=== PATIENT | male | born 1990 | race Caucasian/White ===

== ENCOUNTER 2023-07-24 11:43 | Emergency (ER) | payer OTHER ==
--- NOTE | 2023-07-24 11:46 | ERPHSYRPT ---
- History of Present Illness Time Seen by Provider: 07/24/23 11:46 Source: patient Exam Limitations: no limitations Physician History: This is a 33-year-old white male patient who presents with abscess of his skin of the left upper lip laterally. Patient has no history of MRSA. He noticed in last few days that there was swelling present and he thought it was an infected hair follicle and squeezed it. There was pus present. However the swelling and tenderness increased today. Patient has not had a fever. He has no known drug allergies and he takes no medications chronically. Severity: mild ENT Location: mouth (Upper outer lateral lip) Modifying Factors: Improves With: nothing Associated Symptoms: other (Abscess swelling pain upper outer lateral lip) Allergies/Adverse Reactions: No Known Drug Allergies Allergy (Verified 01/30/14 20:21) Hx Tetanus, Diphtheria Vaccination/Date Given: No Hx Influenza Vaccination/Date Given: No Hx Pneumococcal Vaccination/Date Given: No Travel Risk - International Travel Have you traveled outside of the country in past 3 weeks: No - Coronavirus Screening Are you exhibiting any of the following symptoms?: No Close contact with a COVID-19 positive Pt in past 14-21 Days: No - Review of Systems Constitutional: No Symptoms Eyes: No Symptoms Ears, Nose, & Throat: No Symptoms Respiratory: No Symptoms Cardiac: No Symptoms Abdominal/Gastrointestinal: No Symptoms Genitourinary Symptoms: No Symptoms Musculoskeletal: No Symptoms Skin: Other (Abscess upper outer lateral lip) Neurological: No Symptoms Psychological: No Symptoms Endocrine: No Symptoms Hematologic/Lymphatic: No Symptoms Immunological/Allergic: No Symptoms All Other Systems: Reviewed and Negative - Past Medical History Pertinent Past Medical History: No Neurological History: Other Respiratory History: Asthma Other Medical History: FEBRILE SEIzURES - Past Surgical History Past Surgical History: Yes Musculoskeletal: Orthopedic Surgery Other Surgical History: LEFT HAND SURGERY - Social History Smoking Status: Heavy tobacco smoker How long have you smoked: 6 Exposure to second hand smoke: Yes Drug Use: none Patient Lives Alone: No - Nursing Vital Signs Nursing Vital Signs: Initial Vital Signs Temperature 98.0 F 07/24/23 11:47 Pulse Rate 71 07/24/23 11:47 Respiratory Rate 20 07/24/23 11:47 Blood Pressure 120/80 07/24/23 11:47 O2 Sat by Pulse Oximetry 99 07/24/23 11:47 Pain Scale Pain Intensity 9 - Physical Exam General Appearance: no apparent distress, alert, anxiety, thin Eye Exam: bilateral eye: normal inspection, PERRL, EOMI, abnormal EOM Ear Exam: bilateral ear: auricle normal Nasal Exam: normal inspection Throat Exam: normal Neck Exam: normal inspection, non-tender, supple, full range of motion Cardiovascular/Respiratory Exam: chest non-tender, no respiratory distress Abdominal Exam: non-tender Neurologic Exam: alert, oriented x 3, 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, 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, normal mood/affect, nml cerebellar function, nml station & gait, sensation nml Skin Exam: other (1 cm abscess upper outer left lateral lip) SpO2 Interpretation: normal O2 Delivery: Room Air Procedures - Incision and Drainage Time of Procedure: 12:05 Site: Upper outer lateral left lip cc's of anesthesia: 2 Blade Size: 11 I & D Procedure: betadine prep Results: small amount pus (To moderate expressible pus after incision and drainage) - Course Nursing assessment & vital signs reviewed: Yes - Progress Progress: improved Progress Note: 07/24/23 12:20 This patient medical issues 1 of low complexity. Level complex in the work-up performed is based on review of the patient's past medical history, review the patient's medication list, review the patient drug allergy list, history of present illness, and physical findings on examination. This patient's work-up does not require laboratory or radiographic studies. Counseled pt/family regarding: diagnosis, need for follow-up Medical Desision Making - Diagnostic Testing Diagnostic test were ordered, analyzed, and reviewed by me: No - Risk of complications The pt has a mod risk of morbidity or mortality based on: Need for prescription drug management - Departure Departure Disposition: Home Clinical Impression: Lip abscess Condition: Stable Critical Care Time: No Referrals: JESSICA STANLEY [Primary Care Provider] - Follow up/PCP as directed Additional Instructions: Keep the area clean daily with soap and water. Do not apply lotions ointments or creams. Wash the site at least daily and possibly twice daily. Dry the site after each cleansing and apply a Band-Aid to the site. Take your antibiotics as prescribed. Follow-up with your primary care provider in the next 48 hours for further evaluation and management. Return to emergency department if symptoms worsen. Prescriptions: Hydrocodone/APAP 5/325 [[place] 5/325 mg] 1 each PO Q8H PRN PRN #6 tablet MDD 3 PRN Reason: Pain Smz/Tmp Ds Tablet [Bactrim Ds Tablet] 1 udtab PO BID #14 tablet
[2023-07-24 12:35] VITALS: BP 116/76; TEMP 97.8; O2SAT 97
[2023-07-24 12:37] VITALS: PULSE 64; RESP 16
== END 2023-07-24 12:42 | disposition home or self-care (01) ==
LOC: ED 11:43
DX: L02.01 Cutaneous abscess of face (principal); Z79.891 Long term (current) use of opiate analgesic; Z72.0 Tobacco use
CPT/HCPCS: 10060; 87070; 87077; 87186; 99282

== ENCOUNTER 2023-10-12 11:22 | Emergency (ER) | payer OTHER ==
[2023-10-12 11:52] VITALS: PULSE 93; RESP 14; TEMP 97.9; O2SAT 99
[2023-10-12] MEDS ORDERED: Sodium Chloride 0.9% 1000 ML 1,000 ML IV STA (11:54)
[2023-10-12] MEDS ORDERED: Hydromorphone 1 mg/ml Injection IV ONE (11:54)
[2023-10-12 12:10] VITALS: BP 125/82
--- NOTE | 2023-10-12 12:12 | XRAY ---
Indication: Pain, cough, nausea, and vomiting. Comparison: January 22, 2014 Portable chest demonstrates new right infrahilar hazy interstitial opacities, possible pneumonitis in right clinical setting. Remaining heart, left lung, and bony thorax unremarkable.
[2023-10-12 12:13] LABS: Absolute Neutrophil Ct (ANC) 8.65 x10^3/uL (1.4-6.9); BASOPHIL % 0.3 % (0.0-0.4); Basophil (Absolute #) 0.03 x10^3/uL (0-0.4); Eosinophil % 0.1 % (0.00-5.0); Eosinophil (Absolute #) 0.01 x10^3/uL (0-0.5); Hematocrit 46.3 % (42-50); Hemoglobin 15.6 g/dL (12.5-18.0); IMMATURE GRAN # 0.04 x10^3u/L (0.00-0.03); IMMATURE GRAN % 0.4 % (0.00-0.4); Lymphocyte (Absolute #) 1.42 x10^3/uL (1.0-4.6); Lymphocytes % 13.2 % (24.0-44.0); Mean Corpuscular Hemoglobin 29.3 pg (26-32); Mean Corpuscular Hgb Concent. 33.7 g/dL (32-36); Mean Platelet Volume 9.7 fL (7.5-11.0); Monocyte (Absolute #) 0.59 x10^3/uL (0.0-1.3); Monocytes % 5.5 % (0.0-12.0); Neutrophil % 80.5 % (36.0-66.0); Platelet Count 228 x10^3/uL (150-450); Red Blood Count 5.32 x10^6/uL (4.1-5.6); White Blood Count 10.7 x10^3/uL (4.0-10.5)
[2023-10-12] MEDS ORDERED: Hydromorphone 1 mg/ml Injection ONE (12:20)
[2023-10-12] MEDS ORDERED: Sodium Chloride 0.9% 1000 ML 1,000 ML ONE (12:21)
[2023-10-12 12:29] LABS: ALBUMIN 4.1 g/dL (3.5-5.0); ANION GAP 13.5 MEQ/L (5-15); BILIRUBIN,TOTAL 0.9 mg/dL (0.2-1.3); Calcium 9.1 mg/dL (8.4-10.2); Creatinine 1 0.86 mg/dL (0.66-1.25); EST GLOMERULAR FILTRATION RATE 118.7 ML/MIN; Total Protein 7.5 g/dL (6.3-8.2)
--- NOTE | 2023-10-12 12:37 | ERPHSYRPT ---
- History of Present Illness Time Seen by Provider: 10/12/23 11:45 Source: patient Exam Limitations: no limitations Patient Subjective Stated Complaint: pt states that he has had vomiting for the past 4 days. pt states that he has been chilling, coughing and having runny n ose. Triage Nursing Assessment: pt ambulated into the er; pt is axo x4; c/o vomiting; c/o abd; c/o cough; abd is flat, nontender, active bowel sounds; mucus membranes are pink and moist; clear lung sounds in all lobes; clear apical heart tone; dry, hacking cough; rhinorrhea; skin stoddard, dry, warm; no respiratory distress present; vitals wnl Physician History: Patient is a 33-year-old white male who presents with repeated vomiting severe nausea. He also complains of dyspnea he does produce some sputum he says that his urine has been dark he has been unable to maintain his hydration. He denies any recent bowel movements. He does have an exposure to hepatitis a. Timing/Duration: day(s) (4) Modifying Factors: Improves With: eating Associated Symptoms: nausea, vomiting, abdominal pain, shortness of breath, chills, chest pain, fever Allergies/Adverse Reactions: No Known Drug Allergies Allergy (Verified 10/12/23 11:34) Hx Tetanus, Diphtheria Vaccination/Date Given: Yes Hx Influenza Vaccination/Date Given: No Hx Pneumococcal Vaccination/Date Given: No Travel Risk - International Travel Have you traveled outside of the country in past 3 weeks: No - Coronavirus Screening Are you exhibiting any of the following symptoms?: Yes Symptoms: Fever, Cough: New Onset, Vomiting/Diarrhea, Headaches/Body Aches/Fatigue Close contact with a COVID-19 positive Pt in past 14-21 Days: No - Vaccine Status Have you recieved a Covid-19 vaccination: Yes 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 - Vaccination Dates Dates if Unknown: 2020 - Review of Systems Constitutional: Fever, Chills Eyes: No Symptoms Ears, Nose, & Throat: No Symptoms, Nose Congestion, Throat Pain Respiratory: Cough, Dyspnea Cardiac: Chest Pain, No Edema, No Syncope Abdominal/Gastrointestinal: Abdominal Pain, Nausea, Vomiting, No Diarrhea Genitourinary Symptoms: No Dysuria Musculoskeletal: Arthralgias, Myalgias, No Back Pain, No Neck Pain Skin: No Rash Neurological: No Dizziness, No Focal Weakness, No Sensory Changes Psychological: No Symptoms Endocrine: No Symptoms All Other Systems: Reviewed and Negative - Past Medical History Pertinent Past Medical History: No Neurological History: Other Respiratory History: Asthma GI Medical History: Hepatitis Other Medical History: FEBRILE SEIzURES - Past Surgical History Past Surgical History: Yes Musculoskeletal: Orthopedic Surgery Other Surgical History: LEFT HAND SURGERY - Social History Smoking Status: Heavy tobacco smoker How long have you smoked: 6 Exposure to second hand smoke: Yes Drug Use: none Patient Lives Alone: Yes - Nursing Vital Signs Nursing Vital Signs: Initial Vital Signs Blood Pressure 125/81 10/12/23 11:36 O2 Sat by Pulse Oximetry 98 10/12/23 11:36 Pain Scale Pain Intensity 10 - Physical Exam General Appearance: mild distress, alert Eye Exam: PERRL/EOMI, eyes nml inspection Ears, Nose, Throat Exam: normal ENT inspection, TMs normal, pharynx normal, moist mucous membranes Neck Exam: normal inspection, non-tender, supple, full range of motion Respiratory Exam: normal breath sounds, lungs clear, No respiratory distress Cardiovascular Exam: regular rate/rhythm, normal heart sounds, normal peripheral pulses Gastrointestinal/Abdomen Exam: soft, normal bowel sounds, No tenderness, No mass Back Exam: normal inspection, normal range of motion, No CVA tenderness, No vertebral tenderness Extremity Exam: normal inspection, normal range of motion, pelvis stable Neurologic Exam: alert, oriented x 3, cooperative, normal mood/affect, nml cerebellar function, nml station & gait, sensation nml, No motor deficits Skin Exam: normal color, warm, dry, No rash Lymphatic Exam: No adenopathy SpO2: 99 - Course Nursing assessment & vital signs reviewed: Yes - Radiology Exams Chest X-ray Interpretation: Reviewed by me (Chest x-ray shows bilateral basilar opacities) - CT Exams Abdomen/Pelvis CT Interpretation: Other (Confirmed the bilateral basilar opacities seen on the chest x-ray they also otherwise was negative.) Ordered Tests: Active Orders 24 hr Category Date Time Status IV Insertion STAT Care 10/12/23 11:54 Active ABDOMEN AND PELVIS W CONTRAST [CT] Stat Exams 10/12/23 11:55 Completed CHEST 1 VIEW (PORTABLE) Stat Exams 10/12/23 12:05 Completed CBC W DIFF Stat Lab 10/12/23 12:08 Completed CMP Stat Lab 10/12/23 12:08 Completed LIPASE Stat Lab 10/12/23 12:08 Completed Lactic Acid Stat Lab 10/12/23 12:17 Completed UA W/RFX UR CULTURE Stat Lab 10/12/23 13:17 Received Urine Triage Profile Stat Lab 10/12/23 13:17 Received Medication Summary Discontinued Medications Generic Name Dose Route Start Last Admin Trade Name Freq PRN Reason Stop Dose Admin Droperidol 1.25 mg 10/12/23 11:54 10/12/23 12:37 Droperidol 5 Mg/2 Ml Vial IV 10/12/23 11:55 1.25 mg STAT ONE Administration Droperidol Confirm 10/12/23 12:19 Droperidol 5 Mg/2 Ml Vial Administered 10/12/23 12:20 Dose 5 mg .ROUTE .STK-MED ONE Hydromorphone HCl 0.5 mg 10/12/23 11:54 10/12/23 12:37 Hydromorphone 1 Mg/1ml Inj IV 10/12/23 11:55 0.5 mg STAT ONE Administration Hydromorphone HCl Confirm 10/12/23 12:20 Hydromorphone 1 Mg/1ml Inj Administered 10/12/23 12:21 Dose 1 mg .ROUTE .STK-MED ONE Sodium Chloride 1,000 mls @ 999 mls/hr 10/12/23 11:54 10/12/23 12:37 Sodium Chloride 0.9% 1000 Ml IV 10/12/23 12:54 999 mls/hr .Q1H1M STA Administration Sodium Chloride Confirm 10/12/23 12:21 Sodium Chloride 0.9% 1000 Ml Administered 10/12/23 12:22 Dose 1,000 mls @ ud .ROUTE .STK-MED ONE Lab/Rad Data: Laboratory Result Diagrams 10/12/23 12:08 10/12/23 12:08 Laboratory Results 10/12/23 10/12/23 10/12/23 Range/Units 12:17 12:08 12:08 WBC 10.7 H (4.0-10.5) x10^3/uL RBC 5.32 (4.1-5.6) x10^6/uL Hgb 15.6 (12.5-18.0) g/dL Hct 46.3 (42-50) % MCV 87.0 (78-100) fL MCH 29.3 (26-32) pg MCHC 33.7 (32-36) g/dL RDW 13.0 (11.5-14.0) % Plt Count 228 (150-450) x10^3/uL MPV 9.7 (7.5-11.0) fL Gran % 80.5 H (36.0-66.0) % Immature Gran % (Auto) 0.4 (0.00-0.4) % Nucleat RBC Rel Count 0.0 (0.00-0.1) % Eos # (Auto) 0.01 (0-0.5) x10^3/uL Immature Gran # (Auto) 0.04 H (0.00-0.03) x10^3u/L Absolute Lymphs (auto) 1.42 (1.0-4.6) x10^3/uL Absolute Monos (auto) 0.59 (0.0-1.3) x10^3/uL Absolute Nucleated RBC 0.00 (0.00-0.01) x10^3u/L Lymphocytes % 13.2 L (24.0-44.0) % Monocytes % 5.5 (0.0-12.0) % Eosinophils % 0.1 (0.00-5.0) % Basophils % 0.3 (0.0-0.4) % Absolute Granulocytes 8.65 H (1.4-6.9) x10^3/uL Basophils # 0.03 (0-0.4) x10^3/uL Sodium 134 L (137-145) mmol/L Potassium 4.0 (3.5-5.1) mmol/L Chloride 97 L (98-107) mmol/L Carbon Dioxide 28 (22-30) mmol/L Anion Gap 13.5 (5-15) MEQ/L BUN 13 (9-20) mg/dL Creatinine 0.86 (0.66-1.25) mg/dL Estimated GFR 118.7 ML/MIN Glucose 130 H (74-106) mg/dL Lactic Acid 1.3 (0.4-2.0) Calcium 9.1 (8.4-10.2) mg/dL Total Bilirubin 0.90 (0.2-1.3) mg/dL AST 35 (17-59) U/L ALT 49 (0-50) U/L Alkaline Phosphatase 76 (38-126) U/L Serum Total Protein 7.5 (6.3-8.2) g/dL Albumin 4.1 (3.5-5.0) g/dL Lipase 45 (23-300) U/L - Progress Progress: unchanged Progress Note: 10/12/23 13:34 Became very upset that he was not allowed to drink fluids signed out AMA. We did give him a prescription for Tamiflu and for Keflex. Medical Desision Making - Diagnostic Testing Diagnostic test were ordered, analyzed, and reviewed by me: Yes Radiological Interpretation: Reviewed by me - Risk of complications The pt has a mod risk of morbidity or mortality based on: Need for prescription drug management - Departure Departure Disposition: AMA Clinical Impression: Bilateral pneumonia Condition: Good Critical Care Time: No Referrals: JESSICA STANLEY [Primary Care Provider] - Follow up/PCP as directed Instructions: Pneumonia, Adult (DC) Prescriptions: Cephalexin Mh 500 mg [Keflex 500 mg] 500 mg PO QID #40 cap Oseltamivir 75 mg [Tamiflu 75MG Capsule] 75 mg PO BID #10 cap
--- NOTE | 2023-10-12 12:46 | XRAY ---
Indication: Abdomen pain, nausea, and vomiting. Multiple contiguous images obtained through the abdomen and pelvis using 80 cc Isovue 370 contrast. Comparison: None Lung bases demonstrate scattered interstitial opacities right greater than left, favoring pneumonitis. No consolidation/effusion. Heart not enlarged. Noncontrasted stomach and bowel loops appear nonobstructed. Appendix not visualized. Right lobe liver demonstrate 1.4 cm cyst. No free fluid/air. Remaining liver, gallbladder, pancreas, spleen, adrenal glands, kidneys, bladder, and aorta are unremarkable. No pathologic retroperitoneal lymphadenopathy. Osseous structures intact. No ventral or inguinal hernias. Impression: 1. Bibasilar interstitial opacities. Rule out pneumonitis. 2. Incidental hepatic cyst. 3. Remaining CT abdomen/pelvis with contrast exam is negative.
[2023-10-12 13:34] LABS: Appearance Clear (Clear); Bacteria None Seen /HPF (None Seen); Bilirubin Negative (Negative); Blood Negative (Negative); Epithelial Cells None Seen /HPF (None Seen); Glucose, Urine Negative (Negative); Hyaline Casts NONE SEEN /LPF (0-2); Ketones Trace (Negative); Leukocyte Esterase Negative (Negative); Nitrite Negative (Negative); Protein,Urine Dip 30 (Negative); RBC 0-2 /HPF (0-5); Specific Gravity >=1.030 (1.005-1.030); Urobilinogen >=8.0 mg/dL (0.2); WBC 0-2 /HPF (0-5)
[2023-10-12 13:38] LABS: ADD URINE CULTURE? NO (NO)
[2023-10-12 13:54] LABS: Barbiturate,Urine NEGATIVE (NEGATIVE); Benzodiazepine,Urine NEGATIVE (NEGATIVE); Cocaine,Urine NEGATIVE (NEGATIVE); Methadone,Urine NEGATIVE (NEGATIVE); Opiate,Urine NEGATIVE (NEGATIVE); PCP,Urine NEGATIVE (NEGATIVE); THC,Urine POSITIVE (NEGATIVE)
[2023-10-12 14:10] LABS: INFLUENZA A NEGATIVE (NEGATIVE); INFLUENZA B NEGATIVE (NEGATIVE); RESPIRATORY SYNCTIAL VIRUS NEGATIVE (NEGATIVE); SARS-CoV-2 Xpert Express NEGATIVE (NEGATIVE)
[2023-10-12 14:23] LABS: Amphetamine,Urine POSITIVE (NEGATIVE)
== END 2023-10-12 13:32 | disposition left against medical advice (07) ==
LOC: ED 11:22
DX: J18.9 Pneumonia, unspecified organism (principal); R11.2 Nausea with vomiting, unspecified; R30.0 Dysuria; Z72.0 Tobacco use
CPT/HCPCS: 0241U; 36000; 36415; 71045; 74177; 80053; 80307; 81001; 83605; 83690; 85025; 96360; 96374; 96375; 99284; J1170